=== PATIENT | female | born 1950 | race Caucasian/White ===

== ENCOUNTER → 2017-03-03 | Outpatient (CLI) | payer OTHER ==
[~2017-03-03] MED LIST: ASPI325T8 PO; ATOR20TA PO; CARV6.25 PO; CHOL500045 PO; HYDR25TA9 PO; INSU100V SQ; INSU100V8 SQ; OXYC40TA21 PO; POTA20TA12 PO; SERT100T PO
--- NOTE | 2017-03-03 11:12 | RAD ---
Indication: Nonhealing ulcer on the left foot near the first metatarsal. Time of exam 11 0 2:00 AM Postsurgical changes are identified with partial amputations of the first, second and fourth toes with complete amputation of the third toe. The fifth toe is intact. The resection margins appear to be smooth. No bony destructive changes are seen. The metatarsals are intact. No soft tissue gas is seen. No findings to suggest acute osteomyelitis are identified. The midfoot and hindfoot are unremarkable apart from a small plantar calcaneal spur. Impression: Postop changes. No acute feature is detected.
== END | disposition home or self-care (01) ==
LOC: PMGWOUND 09:51
PROVIDERS: ATTEND Emergency Medicine Undersea and Hyperbaric Medicine
DX: E11.621 Type 2 diabetes mellitus with foot ulcer (principal); L97.521 Non-pressure chronic ulcer of other part of left foot limited to breakdown of skin; I10 Essential (primary) hypertension; E78.00 Pure hypercholesterolemia, unspecified; I25.2 Old myocardial infarction; E11.40 Type 2 diabetes mellitus with diabetic neuropathy, unspecified; Z85.51 Personal history of malignant neoplasm of bladder; Z85.44 Personal history of malignant neoplasm of other female genital organs; Z87.891 Personal history of nicotine dependence; Z89.422 Acquired absence of other left toe(s); Z89.412 Acquired absence of left great toe
CPT/HCPCS: 73630; 99214

== ENCOUNTER → 2017-03-07 | Outpatient (CLI) | payer OTHER | END | disposition home or self-care (01) | LOC: PMGWOUND 12:12 | PROVIDERS: ATTEND Emergency Medicine Undersea and Hyperbaric Medicine | DX: E11.621 Type 2 diabetes mellitus with foot ulcer (principal); L97.521 Non-pressure chronic ulcer of other part of left foot limited to breakdown of skin; E78.00 Pure hypercholesterolemia, unspecified; I25.2 Old myocardial infarction; I10 Essential (primary) hypertension; E11.40 Type 2 diabetes mellitus with diabetic neuropathy, unspecified; Z87.891 Personal history of nicotine dependence; Z85.51 Personal history of malignant neoplasm of bladder; Z85.44 Personal history of malignant neoplasm of other female genital organs; Z89.412 Acquired absence of left great toe; Z89.422 Acquired absence of other left toe(s) | CPT/HCPCS: 11042; 29445 ==

== ENCOUNTER → 2017-03-10 | Outpatient (CLI) | payer OTHER | END | disposition home or self-care (01) | LOC: PMGWOUND 14:40 | PROVIDERS: ATTEND Emergency Medicine Undersea and Hyperbaric Medicine | DX: E11.621 Type 2 diabetes mellitus with foot ulcer (principal); L97.521 Non-pressure chronic ulcer of other part of left foot limited to breakdown of skin; I10 Essential (primary) hypertension; E78.00 Pure hypercholesterolemia, unspecified; I25.2 Old myocardial infarction; E11.40 Type 2 diabetes mellitus with diabetic neuropathy, unspecified; Z85.51 Personal history of malignant neoplasm of bladder; Z85.40 Personal history of malignant neoplasm of unspecified female genital organ; Z87.891 Personal history of nicotine dependence; Z89.422 Acquired absence of other left toe(s); Z89.412 Acquired absence of left great toe | CPT/HCPCS: 11042; 29445 ==

== ENCOUNTER → 2017-03-15 | Outpatient (CLI) | payer OTHER | END | disposition home or self-care (01) | LOC: PMGWOUND 09:26 | PROVIDERS: ATTEND Emergency Medicine Undersea and Hyperbaric Medicine | DX: E11.621 Type 2 diabetes mellitus with foot ulcer (principal); L97.521 Non-pressure chronic ulcer of other part of left foot limited to breakdown of skin; E78.00 Pure hypercholesterolemia, unspecified; I10 Essential (primary) hypertension; I25.2 Old myocardial infarction; E11.40 Type 2 diabetes mellitus with diabetic neuropathy, unspecified; Z85.51 Personal history of malignant neoplasm of bladder; Z85.40 Personal history of malignant neoplasm of unspecified female genital organ; Z87.891 Personal history of nicotine dependence; Z89.412 Acquired absence of left great toe; Z89.422 Acquired absence of other left toe(s) | CPT/HCPCS: 11042 ==

== ENCOUNTER → 2017-03-21 | Outpatient (CLI) | payer OTHER | END | disposition home or self-care (01) | LOC: PMGWOUND 08:27 | PROVIDERS: ATTEND Emergency Medicine Undersea and Hyperbaric Medicine | DX: E11.621 Type 2 diabetes mellitus with foot ulcer (principal); L97.521 Non-pressure chronic ulcer of other part of left foot limited to breakdown of skin; I10 Essential (primary) hypertension; I25.2 Old myocardial infarction; E11.40 Type 2 diabetes mellitus with diabetic neuropathy, unspecified; E78.00 Pure hypercholesterolemia, unspecified; Z85.51 Personal history of malignant neoplasm of bladder; Z87.891 Personal history of nicotine dependence; Z89.422 Acquired absence of other left toe(s); Z89.412 Acquired absence of left great toe; Z85.44 Personal history of malignant neoplasm of other female genital organs | CPT/HCPCS: 99214 ==

== ENCOUNTER → 2017-03-29 | Outpatient (CLI) | payer OTHER | END | disposition home or self-care (01) | LOC: PMGWOUND 12:23 | PROVIDERS: ATTEND Emergency Medicine Undersea and Hyperbaric Medicine | DX: E11.621 Type 2 diabetes mellitus with foot ulcer (principal); L97.521 Non-pressure chronic ulcer of other part of left foot limited to breakdown of skin; I10 Essential (primary) hypertension; I25.2 Old myocardial infarction; E78.00 Pure hypercholesterolemia, unspecified; E11.40 Type 2 diabetes mellitus with diabetic neuropathy, unspecified; Z85.51 Personal history of malignant neoplasm of bladder; Z87.891 Personal history of nicotine dependence; Z85.44 Personal history of malignant neoplasm of other female genital organs; Z89.422 Acquired absence of other left toe(s); Z89.412 Acquired absence of left great toe | CPT/HCPCS: 99213 ==

== ENCOUNTER → 2017-04-07 | Outpatient (CLI) | payer OTHER | END | disposition home or self-care (01) | LOC: PMGWOUND 09:49 | PROVIDERS: ATTEND Emergency Medicine Undersea and Hyperbaric Medicine | DX: E11.621 Type 2 diabetes mellitus with foot ulcer (principal); L97.521 Non-pressure chronic ulcer of other part of left foot limited to breakdown of skin; I10 Essential (primary) hypertension; I25.2 Old myocardial infarction; E11.40 Type 2 diabetes mellitus with diabetic neuropathy, unspecified; E78.00 Pure hypercholesterolemia, unspecified; Z85.51 Personal history of malignant neoplasm of bladder; Z87.891 Personal history of nicotine dependence; Z89.422 Acquired absence of other left toe(s); Z89.412 Acquired absence of left great toe | CPT/HCPCS: 99213 ==

== ENCOUNTER 2017-10-16 21:58 | Emergency (ER) | payer MEDICARE, OTHER ==
[2017-10-16] MEDS: LIDOCAINE 2% VISCOUS 15 ML SOLUTION. SWSW ×2 (22:45)
[2017-10-17 10:37] LABS: NEGATIVE OBC STREP NEG; POSITIVE OBC STREP POS
== END 2017-10-16 23:05 | disposition home or self-care (01) ==
LOC: ER 21:58
DX: J01.00 Acute maxillary sinusitis, unspecified (principal); I10 Essential (primary) hypertension; E11.9 Type 2 diabetes mellitus without complications
CPT/HCPCS: 87070; 87880; 99283

== ENCOUNTER → 2018-03-01 | Outpatient (CLI) | payer MEDICARE | END | disposition home or self-care (01) | LOC: PMGWOUND 08:50 | DX: E11.621 Type 2 diabetes mellitus with foot ulcer (principal); L97.514 Non-pressure chronic ulcer of other part of right foot with necrosis of bone; E11.40 Type 2 diabetes mellitus with diabetic neuropathy, unspecified; I10 Essential (primary) hypertension; E78.00 Pure hypercholesterolemia, unspecified; I25.2 Old myocardial infarction; Z85.51 Personal history of malignant neoplasm of bladder; Z87.891 Personal history of nicotine dependence; Z89.422 Acquired absence of other left toe(s); Z89.412 Acquired absence of left great toe | CPT/HCPCS: 99214 ==

== ENCOUNTER → 2018-03-17 | Outpatient (CLI) | payer MEDICARE | END | disposition home or self-care (01) | LOC: PMGWOUND 09:00 | DX: E11.621 Type 2 diabetes mellitus with foot ulcer (principal); L97.514 Non-pressure chronic ulcer of other part of right foot with necrosis of bone; E11.69 Type 2 diabetes mellitus with other specified complication; M86.272 Subacute osteomyelitis, left ankle and foot; I10 Essential (primary) hypertension; I25.2 Old myocardial infarction; E78.00 Pure hypercholesterolemia, unspecified; E11.40 Type 2 diabetes mellitus with diabetic neuropathy, unspecified; Z87.891 Personal history of nicotine dependence; Z85.51 Personal history of malignant neoplasm of bladder; Z89.412 Acquired absence of left great toe; Z89.422 Acquired absence of other left toe(s) | CPT/HCPCS: 99213 ==

== ENCOUNTER 2021-05-29 11:14 | Day surgery (SDC) | payer MEDICARE ==
[~2021-05-29] VITALS: Ht 162.6 cm; Wt 67.0 kg
[~2021-05-29 11:14] MED LIST changes: +ASPI-630 PO; +CLOP75TA PO; +DULA0.75 SQ; +EMPA25TA PO; +FURO-69 PO; +GABA600T7 PO; +HYDR-2145 PO; -HYDR25TA9 PO; +HYDROmorphone 2 MG/ML VIAL IVP PRN; -INSU100V SQ; +INSU100V6 SQ; +IV RINGERS,LACTATED 1000ML 1,000 ML IV SCH; +LOSA-73 PO; +MORPHINE SULFATE 2 MG/ML INJ. IVP PRN; +PROCHLORPERAZINE 10 MG/2 ML VIAL. IVP PRN; +SPIR25TA5 PO; +fentaNYL PF VIAL 100 MCG/2 ML VIAL IVP PRN
[2021-05-29] MEDS ORDERED: INSULIN LISPRO 100 UNIT/ML 3ML VIAL for OP,RR ONLY. SQ PRN (11:45)
[2021-05-29 11:54] VITALS: BP 181/72
[2021-05-29] MEDS ORDERED: INSULIN LISPRO 100 UNIT/ML 3ML VIAL for OP,RR ONLY. SQ ONE (12:10)
[2021-05-29 12:11] LABS: BASO # 0.1 x10^3/uL (0.0-0.2); BASO % 1 % (0-3); EOS # 0.2 x10^3/uL (0.0-0.7); EOS % 4 % (0-3); HEMATOCRIT 35.8 % (36.0-47.0); HEMOGLOBIN 11.7 g/dL (12.0-15.5); LYMPH # 1.2 x10^3/uL (1.0-4.8); LYMPH % 21 % (24-48); MEAN CORPUSCULAR HEMOGLOBIN 26 pg (25-35); MEAN CORPUSCULAR HGB CONC 33 g/dL (31-37); MEAN CORPUSCULAR VOLUME 78 fL (79-100); MONO # 0.3 x10^3/uL (0.0-1.1); MONO % 5 % (0-9); NEUT # 4.1 x10^3/uL (1.8-7.7); NEUT % 70 % (31-73); PLATELET COUNT 176 x10^3/uL (140-400); RED BLOOD COUNT 4.59 x10^6/uL (3.50-5.40); RED CELL DISTRIBUTION WIDTH 15.2 % (11.5-14.5); WHITE BLOOD COUNT 5.9 x10^3/uL (4.0-11.0)
[2021-05-29 12:20] LABS: CALCIUM 8.9 mg/dL (8.5-10.1); CREATININE 0.8 mg/dL (0.6-1.0); GFR 71.3; POTASSIUM 4.2 mmol/L (3.5-5.1)
[2021-05-29] MEDS ORDERED: PROPOFOL 10 MG/ML (20ML) VIAL. IV ONE (13:15)
[2021-05-29] MEDS ORDERED: LIDOCAINE 2% PF 5 ML VIAL. ONE (13:15)
[2021-05-29] MEDS ORDERED: DEXAMETHASONE SOD PHOS 4 MG/ML VIAL ONE (13:16)
[2021-05-29] MEDS ORDERED: ONDANSETRON PF 4 MG/2 ML VIAL. ONE (13:16)
[2021-05-29] MEDS ORDERED: OXYC-325 PO (13:32)
--- NOTE | 2021-05-29 13:37 | DISCH ---
DISCHARGE INSTRUCTIONS Condition on Discharge Condition on Discharge: Stable Activity After Discharge Activity Instructions for Disc: Activity as tolerated Weight Bearing Status after Di: Non weight bearing (may heel touch or use off- loading shoe left foot for minimal ambulation) Diet after Discharge Additional Diet Restrictions: follow pre procedure diet Wound Incision Care Wound/Incision Care: Keep wound elevated, Change dressing (cleanse lightly with water, then apply dry gauze) Contacting the DRJael after DC Call your doctor for: If your condition worsens Follow-Up Follow up with: Dr. Sneed 2-3 weeks call for appointment VIRGIE PLUNKETT APRN May 29, 2021 13:37
--- NOTE | 2021-05-29 13:49 | PDOC ---
Provider Note Date of Service: DATE: 05/29/21 TIME: 13:47 Provider Note (Please see full office H&P dated 05/25/2021.) She is a 70-year-old female with diabetes and peripheral neuropathy who has had previous left transmetatarsal amputation except for a small remnant of fourth proximal toe. She also has had a right first toe amputation. She has small nonhealing ulcer on the plantar aspect of the right foot as well as much larger left lateral forefoot ulcer. She presents for elective debridement of the left lateral forefoot. I discussed options of treatment including local debridement and wound care with wound VAC or other dressing versus formal conversion to a transmetatarsal amputation with attempted closure. Risks and potential benefits were discussed in detail with her. Risks include but not limited to bleeding, infection, nerve injury, cardiac/pulmonary complications, and . She acknowledged and requested to proceed. I discussed the importance of offloading of the left foot following debridement or amputation. Would ideally do nonweightbearing to the left foot for the next 2 weeks. Will get her a heelstrike shoe for limited heel touch for transfers only. Justifications for Admission Other Justification MARGE MEEK MD May 29, 2021 13:49
[2021-05-29] MEDS ORDERED: fentaNYL PF VIAL 100 MCG/2 ML VIAL ONE ×3 (14:08→16:18)
[2021-05-29] MEDS: fentaNYL PF VIAL 100 MCG/2 ML VIAL IVP PRN ×3 (14:11→16:34)
[2021-05-29] MEDS ORDERED: LIDOCAINE 1% Multi-Dose 20 ML VIAL. ONE (15:09)
[2021-05-29] MEDS ORDERED: AMOX1TAB61 PO (16:18)
--- NOTE | 2021-05-29 16:34 | PDOC ---
BRIEF OPERATIVE NOTE Date: May 29, 2021 Pre-Op Diagnosis Diabetes with peripheral neuropathy Left chronic forefoot ulcer with exposed bone in the base Osteomyelitis Peripheral arterial disease Post-Op Diagnosis Same Procedure Performed Revision of left transmetatarsal amputation with resection of second through fifth distal metatarsals with closure of wound Surgeon Naren Anesthesia Type: MAC, Local Blood Loss 25 ml Specimens Obtained Left 3rd metatarsal head for C&S Findings Open wound on the lateral left forefoot with exposed third metatarsal head and remnant of the left fourth toe Exposed and friable left third metatarsal shaft consistent with osteomyelitis Revision of left transmetatarsal amputation was performed with resection of the distal portions of the left second, third, fourth, and fifth metatarsal shafts with irrigation and redo closure. Good bleeding at the amputation site. Complications None MARGE MEEK MD May 29, 2021 16:33
[2021-05-29] MEDS ORDERED: oxyCODONE/APAP 5/325 1 TAB TABLET PO ONE (16:45)
[2021-05-29 16:55] VITALS: BP 134/63
--- NOTE | 2021-05-29 18:04 | OP ---
DATE OF SURGERY: 05/29/2021 PREOPERATIVE DIAGNOSES: 1. Nonhealing left lateral foot ulcer. 2. Osteomyelitis, left forefoot. 3. Diabetes with peripheral neuropathy. 4. Hypertension. 5. Previous left toe amputations. POSTOPERATIVE DIAGNOSES: 1. Nonhealing left lateral foot ulcer. 2. Osteomyelitis, left forefoot. 3. Diabetes with peripheral neuropathy. 4. Hypertension. 5. Previous left toe amputations. PROCEDURE: Left transmetatarsal amputation revision with resection of ulcer and resection of distal left second, third, fourth, and fifth metatarsal shafts with primary closure. SURGEON: Randy Sneed MD ANESTHESIA: Monitored anesthesia care, local. INDICATIONS: The patient is a 70-year-old female with diabetes and peripheral neuropathy, who has had previous left toe amputations. She now presents with nonhealing ulcer at the left lateral forefoot. There is exposed left third metatarsal head as well as a remnant of a left fourth toe. She presents for foot debridement and possible revision of amputation. FINDINGS: The left third metatarsal head was in the base of the wound and extremely friable. This was sent to microbiology for culture and sensitivity. She underwent a revision of the left forefoot amputation with formal transmetatarsal amputation including resection of the distal portions of the 2nd through 5th metatarsal shafts with primary closure. There was good bleeding at the amputation site. DESCRIPTION OF PROCEDURE: The patient was taken to the operating room and placed supine on the hospital cart. She underwent monitored anesthesia care with IV sedation. Left foot was prepped and draped in normal sterile fashion. 1% lidocaine was infused block around the left lateral forefoot. An elliptical incision was made around the area of ulceration as well as the remnant of the fourth toe. This was extended down to the metatarsal shafts. As noted, the distal third metatarsal head was intact, although very friable. This was resected with rongeur and sent to microbiology for culture and sensitivity. The second through fourth distal metatarsal shafts were carefully mobilized free from the surrounding tissue and were trimmed proximally using a rongeur back to viable tissue. The exposed tendons were excised. There was good bleeding from the base of the wound. The wound was copiously irrigated with saline irrigation. Electrocautery used for hemostasis. Deep subcutaneous tissue was reapproximated with a running 2-0 Vicryl suture. Skin was reapproximated with a running 3-0 nylon suture. Xeroform, followed by 4 x 4's, Sof-Rol and an Theron wrap was applied. The patient tolerated the procedure well and there were no complications. ESTIMATED BLOOD LOSS: 25 mL. SPECIMEN: Left third metatarsal head for culture and sensitivity. MARY DR: Roxanne TID: [id number] CC: JANAE MURILLO MD, Kevin Martin MD
== END 2021-05-29 17:25 | disposition home or self-care (01) ==
LOC: SURG 11:14
PROVIDERS: ATTEND Surgery Vascular Surgery
DX: S91.302A Unspecified open wound, left foot, initial encounter (principal); L97.524 Non-pressure chronic ulcer of other part of left foot with necrosis of bone; L97.521 Non-pressure chronic ulcer of other part of left foot limited to breakdown of skin; L97.511 Non-pressure chronic ulcer of other part of right foot limited to breakdown of skin; E11.621 Type 2 diabetes mellitus with foot ulcer; M86.8X7 Other osteomyelitis, ankle and foot; I10 Essential (primary) hypertension; I25.10 Atherosclerotic heart disease of native coronary artery without angina pectoris; E78.00 Pure hypercholesterolemia, unspecified; F32.9 Major depressive disorder, single episode, unspecified; Z79.82 Long term (current) use of aspirin; Z79.84 Long term (current) use of oral hypoglycemic drugs; Z79.899 Other long term (current) drug therapy; Z98.51 Tubal ligation status; Z90.710 Acquired absence of both cervix and uterus; Z98.890 Other specified postprocedural states; X58.XXXA Exposure to other specified factors, initial encounter; Y93.89 Activity, other specified; Y92.89 Other specified places as the place of occurrence of the external cause; Y99.8 Other external cause status
CPT/HCPCS: 11044; 36415; 80048; 82962; 85025; 87071; 87075; A4209; A4930; A6402; A6449; J0690; J1815; J2405; J2704; J3010; J3490; J7040; A6443; J1100